=== PATIENT | male | born 1935 | race Caucasian/White ===

== ENCOUNTER → 2017-11-25 | Outpatient (CLI) | payer MEDICARE, OTHER ==
[~2017-11-25] MED LIST: AMLO-99 PO; ATOR40TA24 PO; CLOP75TA43 PO; CYAN100015 PO; CYAN50008 PO; ESOM40CA42 PO; FLAX100041 PO; FLUT1DIS27 IH; FLUT1DIS29 IH; MAGN250T5 PO; METF-411 PO; OMEP40CA48 PO; OXYGENHOME INH; SITA100T PO; TERB250T74 PO; TIO18R INH; TRIA60LO4 TP; VALS1TAB4 PO; VALS1TAB75 PO
[2017-11-25 12:52] LABS: PLATELET COUNT, AUTOMATED 169 K/uL (150-450)
[2017-11-25 13:04] LABS: LDL CHOLESTEROL 15 mg/dl
== END ==
LOC: LAB 12:40
PROVIDERS: ATTEND Family Medicine
DX: I10 Essential (primary) hypertension (principal); R53.83 Other fatigue; E11.9 Type 2 diabetes mellitus without complications
CPT/HCPCS: 36415; 82040; 82247; 82310; 82374; 82435; 82465; 82565; 82947; 83036; 83718; 84075; 84132; 84155; 84295; 84443; 84450; 84460; 84478; 84520; 85025

== ENCOUNTER → 2018-03-24 | Outpatient (CLI) | payer MEDICARE, OTHER ==
[~2018-03-24] MED LIST changes: +AMLO-113 PO; -AMLO-99 PO; +LOSA100T69 PO; -METF-411 PO; +METF-450 PO
== END ==
LOC: LAB 11:30
PROVIDERS: ATTEND Family Medicine
DX: E11.9 Type 2 diabetes mellitus without complications (principal)
CPT/HCPCS: 36415; 82310; 82374; 82435; 82565; 82947; 83036; 84132; 84295; 84520

== ENCOUNTER → 2018-07-21 | Outpatient (CLI) | payer MEDICARE, OTHER ==
[~2018-07-21] MED LIST changes: -AMLO-113 PO; +AMLO-127 PO; +ASPI-1471 PO; +CALC1TAB32 PO; +GLIM2TAB43 PO; -LOSA100T69 PO; +LOSA100T75 PO; +MAGN400T4 PO; +TICA90TA PO
== END ==
LOC: LAB 11:16
PROVIDERS: ATTEND Family Medicine
DX: E11.9 Type 2 diabetes mellitus without complications (principal)
CPT/HCPCS: 36415; 83036

== ENCOUNTER → 2018-10-20 | Outpatient (CLI) | payer MEDICARE, OTHER ==
[2018-10-20 11:56] LABS: PLATELET COUNT, AUTOMATED 176 K/uL (150-450)
== END ==
LOC: LAB 11:26
PROVIDERS: ATTEND Family Medicine
DX: E11.9 Type 2 diabetes mellitus without complications (principal)
CPT/HCPCS: 36415; 82310; 82374; 82435; 82565; 82947; 83036; 84132; 84295; 84520; 85025